=== PATIENT | female | born 1950 | race Caucasian/White ===

== ENCOUNTER → 2019-05-20 13:13 | Outpatient (CLI) | payer MEDICARE, SELFPAY ==
--- NOTE | ~2019-05-20 | DEXA_ITS ---
Bone Density Report Name: Erin Quintana Age: 68 Sex: Female Ethnicity: White Date of : 1950 Indication: postmenopausal osteoporosis; monitoring treatment; height loss; prior fracture; hysterectomy; Referring Provider: HE SMITH Study: Bone densitometry was performed. Exam Date: May 20, 2019 Accession number: [id number] Bone Density: Region BMD T-score Z-score Classification AP Spine (L1-L4) 0.784 -2.4 -0.2 Osteopenia Femoral Neck (Left) 0.508 -3.1 -1.2 Osteoporosis Total Hip (Left) 0.687 -2.1 -0.5 Osteopenia Femoral Neck (Right) 0.538 -2.8 -1.0 Osteoporosis Total Hip (Right) 0.706 -1.9 -0.4 Osteopenia Total Hip Mean 0.696 -2.0 -0.5 Osteopenia World Health Organization criteria for BMD impression classify patients as: Normal (T-score at or above -1.0), Osteopenia (T-score between -1.0 and -2.5), or Osteoporosis (T-score at or below -2.5). 10-year Fracture Risk: FRAX not reported because: Some T-score for Spine Total or Hip Total or Femoral Neck at or below -2.5 Treated for osteoporosis Previous Exams: Region Exam Age BMD T-score BMD Change BMD Change Date g/cm2 vs Baseline vs Previous AP Spine(L1-L4) 05/20/2019 68 0.784 -2.4 0.046* 0.022 02/11/2017 66 0.762 -2.6 0.024* 0.012 03/24/2014 63 0.751 -2.7 0.012 0.012 03/06/2012 61 0.738 -2.8 Total Hip(Left) 05/20/2019 68 0.687 -2.1 -0.023 -0.009 02/11/2017 66 0.696 -2.0 -0.014 -0.020 03/24/2014 63 0.716 -1.9 0.006 0.006 03/06/2012 61 0.710 -1.9 Total Hip(Right) 05/20/2019 68 0.706 -1.9 0.005 0.027 02/11/2017 66 0.679 -2.2 -0.021 -0.020 03/24/2014 63 0.699 -2.0 -0.001 -0.001 03/06/2012 61 0.700 -2.0 *Denotes significance at 95% confidence level, LSC for AP Spine = 0.022 g/cm2, LSC for Total Hip = 0.027 g/cm2 Clinical Information Provided by Patient: Has had a low trauma fracture Is being treated for osteoporosis Has used the following medications: Actonel (i.e. risedronate), Calcium, VIT D INCLUDED IN CALCIUM, MTV Has the following medical conditions: Hysterectomy, BREAST CANCER 1993 Patient maximum height was 64 Menopause Age: 43 Drinks caffeinated beverages Onset of menses at age 11 Number of children 2 Impression: The patient has established osteoporosis, base
--- NOTE | ~2019-05-20 | MM_ITS ---
EXAMINATION: MM screening in[facility] BI w ramonita HISTORY: Screening mammogram TECHNIQUE: Craniocaudal and mediolateral oblique 3-D tomosynthesis images were obtained and synthetic 2-D images were generated. CAD analysis was submitted and interpreted. COMPARISON: 03/19/2018 bilateral digital screening mammogram 02/19/2017 bilateral diagnostic digital mammogram , 05/18/2015 bilateral digital screening mammogram examinations BREAST PARENCHYMAL COMPOSITION: The breasts are heterogeneously dense, which may obscure small masses . FINDINGS: There is postoperative change of the left breast from partial mastectomy including volume l oss compared to the right. Occasional bilateral benign calcifications. There is no evidence of suspic ious mass, calcification, or architectural distortion to suggest malignancy in either breast. There h as been no suspicious interval change. IMPRESSION: 1. No mammographic evidence of malignancy. 2. Recommend routine screening mammography in one year. BI-RADS Category 2: Benign finding(s). Reviewed, dictated and finalized at location A. INE PRINTER
== END ==
PROVIDERS: PCP Nurse Practitioner; Visit Provider Nurse Practitioner
DX: Z12.31 Encounter for screening mammogram for malignant neoplasm of breast (principal); M81.0 Age-related osteoporosis without current pathological fracture
CPT/HCPCS: 77063; 77067; 77080

== ENCOUNTER → 2020-11-26 13:42 | Outpatient (CLI) | payer MEDICARE, SELFPAY ==
--- NOTE | ~2020-11-26 | MM_ITS ---
EXAMINATION: MM screening inez BI w ramonita HISTORY: Screening TECHNIQUE: Craniocaudal and mediolateral oblique 3-D tomosynthesis images were obtained and synthetic 2-D images were generated. CAD analysis was submitted and interpreted. COMPARISON: No prior mammogram is available for comparison at this institution. BREAST PARENCHYMAL COMPOSITION: The breasts are heterogeneously dense, which may obscure small masses . FINDINGS: There is no evidence of suspicious mass, calcification, or architectural distortion to sugg est malignancy in either breast. There has been no suspicious interval change. IMPRESSION: 1. No mammographic evidence of malignancy. 2. Recommend routine screening mammography in one year. BI-RADS Category 1: Negative Reviewed, dictated and finalized at location A.
== END ==
PROVIDERS: PCP Internal Medicine; Visit Provider Internal Medicine
DX: Z12.31 Encounter for screening mammogram for malignant neoplasm of breast (principal)
CPT/HCPCS: 77063; 77067

== ENCOUNTER → 2021-07-16 10:58 | Outpatient (CLI) | payer MEDICARE, SELFPAY ==
--- NOTE | ~2021-07-16 | DEXA_ITS ---
Bone Density Report Name: LAXMI PRIETO Age: 71 Sex: Female Ethnicity: White Date of : 1950 Indication: osteopenia; monitoring treatment; height loss; prior fracture; hysterectomy; postmenopausal Referring Provider: Blanca Garcia Study: Bone densitometry was performed. Exam Date: July 16, 2021 Accession number: [id number] Bone Density: Region BMD T-score Z-score Classification AP Spine (L1-L4) 0.818 -2.1 0.2 Osteopenia Femoral Neck (Left) 0.512 -3.0 -1.1 Osteoporosis Total Hip (Left) 0.702 -2.0 -0.3 Osteopenia Femoral Neck (Right) 0.538 -2.8 -0.8 Osteoporosis Total Hip (Right) 0.684 -2.1 -0.4 Osteopenia Total Hip Mean 0.693 -2.1 -0.4 Osteopenia World Health Organization criteria for BMD impression classify patients as: Normal (T-score at or above -1.0), Osteopenia (T-score between -1.0 and -2.5), or Osteoporosis (T-score at or below -2.5). 10-year Fracture Risk: FRAX not reported because: Some T-score for Spine Total or Hip Total or Femoral Neck at or below -2.5 Treated for osteoporosis Previous Exams: Region Exam Age BMD T-score BMD Change BMD Change Date g/cm2 vs Baseline vs Previous AP Spine(L1-L4) 07/16/2021 71 0.818 -2.1 0.079* 0.033* 05/20/2019 68 0.784 -2.4 0.046* 0.022 02/11/2017 66 0.762 -2.6 0.024* 0.012 03/24/2014 63 0.751 -2.7 0.012 0.012 03/06/2012 61 0.738 -2.8 Total Hip(Left) 07/16/2021 71 0.702 -2.0 -0.008 0.015 05/20/2019 68 0.687 -2.1 -0.023 -0.009 02/11/2017 66 0.696 -2.0 -0.014 -0.020 03/24/2014 63 0.716 -1.9 0.006 0.006 03/06/2012 61 0.710 -1.9 Total Hip(Right) 07/16/2021 71 0.684 -2.1 -0.017 -0.022 05/20/2019 68 0.706 -1.9 0.005 0.027 02/11/2017 66 0.679 -2.2 -0.021 -0.020 03/24/2014 63 0.699 -2.0 -0.001 -0.001 03/06/2012 61 0.700 -2.0 *Denotes significance at 95% confidence level, LSC for AP Spine = 0.022 g/cm2, LSC for Total Hip = 0.027 g/cm2 Clinical Information Provided by Patient: Has had a low trauma fracture Is being treated for osteoporosis Has used the following medications: Actonel (i.e. risedronate), Calcium, VIT D INCLUDED IN CALCIUM, MTV, LEVOTHYROXINE Has the following medical conditions: Hysterectomy, BREAST CANCER 1993 WITH CHEMO AND RADIATION Patient maximum height was 64
== END ==
PROVIDERS: Visit Provider Nurse Practitioner
DX: M81.0 Age-related osteoporosis without current pathological fracture (principal); M85.89 Other specified disorders of bone density and structure, multiple sites
CPT/HCPCS: 77080

== ENCOUNTER 2022-03-20 08:53 | Outpatient (CLI) | payer MEDICARE, SELFPAY ==
[2022-03-20 18:55] LABS: Basophils Absolute Auto 0.1 K/mm3 (0.0-0.1); Basophils Percent Auto 1.2 % (0.2-1.2); Eosinophils Absolute Auto 0.1 K/mm3 (0-0.3); Eosinophils Percent Auto 2.8 % (0-4.4); Hematocrit 46.2 % (37.0-47.0); Immature Granulocyte Absolute 0.01 K/mm3 (0.00-0.031); Immature Granulocyte Percent A 0.2 % (0-0.5); Lymphocytes Absolute Auto 1.42 K/mm3 (0.9-3.2); Lymphocytes Percent Auto 32.9 % (18.3-44.2); Mean Corpuscular HGB Conc 32.5 g/dl (32-36); Mean Corpuscular Hemoglobin 30.9 pg (26-34); Mean Corpuscular Volume 95.3 fl (80-100); Mean Platelet Volume 9.7 fl (7.4-10.4); Monocytes Absolute Auto 0.4 K/mm3 (0.1-0.6); Monocytes Percent Auto 8.6 % (2.6-8.5); Neutrophils Absolute Auto 2.4 K/mm3 (1.3-6.7); Neutrophils Percent Auto 54.3 % (45.5-73.1); Platelet Count Result 259 k/mm3 (150-375); Red Blood Count 4.85 M/mm3 (4.2-5.4); Red Cell Distribution Width 13.2 % (11.5-14.5); White Blood Count 4.3 K/mm3 (4.5-10.0)
[2022-03-20 19:27] LABS: Alanine Aminotransferase 23 U/L (6-35); Albumin Level 4.7 g/dL (3.5-5.1); Alkaline Phosphatase 62 U/L (38-126); Anion Gap 10 mmol/L (8-16); Aspartate Amino Transferase 29 U/L (14-36); Bilirubin,Total 0.3 mg/dL (0.2-1.3); Blood Urea Nitrogen 16 mg/dL (7-17); Calcium 9.3 mg/dL (8.4-10.2); Carbon Dioxide 27 mmol/L (22-30); Chloride 102 mmol/L (98-107); Cholesterol 220 mg/dL (0-200); Estimated Glomerular Filt Rate > 60; Glucose 100 mg/dL (65-110); HDL Direct 47 mg/dL; Potassium 4.2 mmol/L (3.4-5.0); Sodium 139 mmol/L (137-145); Triglycerides 152 mg/dL (<150)
[2022-03-20 19:31] LABS: Vitamin D 25 Hydroxy 30.7 ng/mL
[2022-03-20 19:38] LABS: LDL Cholesterol Direct 126 mg/dL
== END 2022-03-20 08:54 | disposition home or self-care (01) ==
LOC: ANHGOSHLAB 08:56
PROVIDERS: PCP Internal Medicine; Visit Provider Nurse Practitioner
DX: E03.9 Hypothyroidism, unspecified (principal); E55.9 Vitamin D deficiency, unspecified; Z13.29 Encounter for screening for other suspected endocrine disorder; E78.5 Hyperlipidemia, unspecified
CPT/HCPCS: 36415; 80053; 80061; 82306; 84443; 85025

== ENCOUNTER 2022-03-24 12:21 | Outpatient (CLI) | payer MEDICARE, SELFPAY ==
--- NOTE | 2022-03-24 12:33 | ECHO_ITS ---
Patient Info Name: Erin Quintana Age: 71 years : 1950 Gender: Female Ht: 62 in Wt: 146 lbs BSA: 1.72 m2 HR: 71 bpm BP: 156 / 92 mmHg Technical Quality: Fair Exam Date: 03/24/2022 12:59 PM Exam Location: [facility] Patient Status: Outpatient Admit Date: 03/24/2022 Staff Ordering Physician: Blanca Garcia NP Diabetes Manager: Jeny Yu RDCS Attending Provider: Blanca Garcia NP Referring Physician: Radha MORENO; Exam Type: CA echo doppler color flow Study Info Indications R01.1 - Cardiac murmur, unspecified Complete two-dimensional, color flow and Doppler transthoracic echocardiogram is performed. Summary 1. Complete two-dimensional, color flow and Doppler transthoracic echocardiogram is performed. 2. Left ventricular chamber dimension is normal. 3. Left ventricular systolic function is normal, estimated at 65-70%. 4. There is mildly increased left ventricular wall thickness. 5. The left ventricular diastolic function is grade I diastolic dysfunction. 6. E/e' 10 is mildly elevated. 7. Global longitudinal strain is normal at -17.3%. 8. Left atrial chamber dimension is mildly enlarged. 9. There is moderate aortic valve sclerosis. 10. There is mild aortic valve stenosis with a peak velocity of 328 cm/s, mean gradient of 23 mmHg, and aortic valve area of 1.9 cm2. 11. No pulmonary hypertension, estimated pulmonary arterial systolic pressure is 34 mmHg. Left Ventricle E/e' 10 is mildly elevated. Global longitudinal strain is normal at -17.3%. Left ventricular chamber dimension is normal. Left ventricular systolic function is normal, estimated at 65-70%. There is mildly increased left ventricular wall thickness. The left ventricular diastolic function is grade I diastolic dysfunction. Right Ventricle Right ventricular systolic function is normal and with normal TAPSE 1.7 cm. Right ventricular chamber dimension is normal. Left Atria Left atrial chamber dimension is mildly enlarged. Right Atria Right atrial chamber dimension is normal. Aortic Valve The aortic valve is probable trileaflet. There is moderate aortic valve sclerosis. There is mild aortic valve stenosis with a peak velocity of 328 cm/s, mean gradient of 23 mmHg, and aortic valve area of 1.9 cm2. There is no aortic valve regurgitation. Pulmonic Valve There is no pulmonic regurgitation. Mitral Valve There is no mitral valve stenosis. There is no mitral valve regurgitation. Tricuspid Valve There is no tricuspid valve regurgitation. No pulmonary hypertension, estimated pulmonary arterial systolic pressure is 34 mmHg. Pericardium/Pleural There is no pericardial effusion. Inferior Vena Cava Normal inferior vena cava with >50% collapse upon inspiration consistent with normal right atrial pressure, 5 mmHg. Aorta The aortic root size at the sinus of Valsalva is normal. Left Ventricular Outflow Tract Name Value Normal LVOT 2D LVOT Diameter 2.0 cm LVOT Doppler LVOT Peak Gradient 20 mmHg LVOT Mean Gradient 10 mmHg LVOT VTI 43
== END 2022-03-24 12:22 | disposition home or self-care (01) ==
LOC: ANHCARD 12:25
PROVIDERS: PCP Internal Medicine; Visit Provider Nurse Practitioner
DX: R01.1 Cardiac murmur, unspecified (principal); I35.8 Other nonrheumatic aortic valve disorders
CPT/HCPCS: 93306

== ENCOUNTER → 2022-06-10 07:10 | Outpatient (CLI) | payer MEDICARE, SELFPAY ==
--- NOTE | ~2022-06-10 | MM_ITS ---
EXAMINATION: MM screening inez BI w ramonita HISTORY: Screening mammogram TECHNIQUE: Craniocaudal and mediolateral oblique 3-D tomosynthesis images were obtained and synthetic 2-D images were generated. CAD analysis was submitted and interpreted. COMPARISON: 11/26/2020, 05/20/2019, 03/19/2018 bilateral screening mammogram examinations BREAST PARENCHYMAL COMPOSITION: The breasts are heterogeneously dense, which may obscure small masses . FINDINGS: There is diminished size of the left breast consistent with prior left partial mastectomy f or breast malignancy. Scattered bilateral benign calcifications. There are some indeterminate microcalcifications in the upper left breast on MLO view. Diagnostic lef t mammogram with magnification views is recommended. Otherwise there is no evidence of suspicious mass, calcification, or architectural distortion to sugg est malignancy in either breast. There has been no other suspicious interval change. IMPRESSION: 1. Status post left partial mastectomy for breast cancer. 2. Indeterminate microcalcifications, upper left breast on MLO view; diagnostic left mammogram with m agnification views is recommended. BI-RADS Category 0: Incomplete: Needs additional imaging evaluation. Reviewed, dictated and finalized at location A. FASTENER IMPRESSION: 1. Status post left partial mastectomy for breast cancer. 2. Indeterminate microcalcifications, upper left breast on MLO view; diagnostic left mammogram with magnification views is recommended. BI-RADS Category 0: Incomplete: Needs additional imaging evaluation.
== END ==
PROVIDERS: PCP Internal Medicine; Visit Provider Nurse Practitioner
DX: Z12.31 Encounter for screening mammogram for malignant neoplasm of breast (principal); Z85.3 Personal history of malignant neoplasm of breast; Z90.12 Acquired absence of left breast and nipple; R92.0 Mammographic microcalcification found on diagnostic imaging of breast
CPT/HCPCS: 77063; 77067

== ENCOUNTER 2022-06-30 07:49 | Outpatient (CLI) | payer MEDICARE, SELFPAY ==
--- NOTE | ~2022-06-30 | MMUS_ITS ---
EXAMINATION: MM diagnostic mammo unilat LT, US breast LT complete HISTORY: Indeterminate microcalcifications in upper left breast on June 10, 2022 screening mammog lorie TECHNIQUE: ML view.. ML, MLO and CC magnification views. CAD analysis was submitted and interpreted. High resolution complete left breast ultrasound examination including all 4 quadrants and subareolar area was performed. COMPARISON: None FINDINGS: MAMMOGRAPHIC FINDINGS: There is heterogeneous dense stroma which may obscure masses. And scattered benign circular microcalc ifications and occasional linear secretory calcifications are noted. No suspicious reproducible calci fications are noted. Arterial calcification is noted. ULTRASOUND: No suspicious mass or shadowing or other significant sonographic abnormality is noted. IMPRESSION: 1. Benign finding 2. Routine annual mammographic screening is recommended BI-RADS Category 2: Benign finding(s). Reviewed, dictated and finalized at location A. IMPRESSION: 1. Benign finding 2. Routine annual mammographic screening is recommended BI-RADS Category 2: Benign finding(s).
== END 2022-06-30 07:50 ==
LOC: MICIMG 07:50
PROVIDERS: PCP Internal Medicine; Visit Provider Nurse Practitioner
DX: N64.89 Other specified disorders of breast (principal)
CPT/HCPCS: 76641; 77065

== ENCOUNTER 2023-04-07 12:19 | Outpatient (CLI) | payer MEDICARE, SELFPAY ==
--- NOTE | 2023-04-07 12:38 | ECHO_ITS ---
Patient Info Name: Erin Quintana Age: 72 years : 1950 Gender: Female Ht: 63 in Wt: 148 lbs BSA: 1.74 m2 HR: 65 bpm BP: 141 / 85 mmHg Heart Rhythm: Sinus Rhythm Technical Quality: Good Exam Date: 04/07/2023 12:43 PM Exam Location: [facility] Patient Status: Outpatient Admit Date: 04/07/2023 Staff Ordering Physician: Kimo Khan DO Urologic Surgeon: Francisco Vallejo RDCS Attending Provider: Kimo Khan DO Referring Physician: Bill AMANDA; Exam Type: CA echo doppler color flow Study Info Indications - nonrhumatic valve stenosis Complete two-dimensional, color flow and Doppler transthoracic echocardiogram is performed. Summary 1. Complete two-dimensional, color flow and Doppler transthoracic echocardiogram is performed. 2. Left ventricular chamber dimension is normal. 3. Left ventricular systolic function is normal, estimated at 65-70%. 4. There is mild concentric increased left ventricular wall thickness. 5. The left ventricular diastolic function is grade I diastolic dysfunction. 6. E/e' 10 is mildly elevated. 7. Left atrial chamber dimension is mildly enlarged. 8. There is moderate aortic valve sclerosis. 9. There is moderate mitral valve regurgitation. 10. There is mild tricuspid valve regurgitation. 11. No pulmonary hypertension, estimated pulmonary arterial systolic pressure is 25 mmHg. Left Ventricle E/e' 10 is mildly elevated. Left ventricular chamber dimension is normal. Left ventricular systolic function is normal, estimated at 65-70%. There is mild concentric increased left ventricular wall thickness. The left ventricular diastolic function is grade I diastolic dysfunction. Right Ventricle Right ventricular chamber dimension is normal. Right ventricular systolic function is normal. Left Atria Left atrial chamber dimension is mildly enlarged. Right Atria Right atrial chamber dimension is normal. Aortic Valve The aortic valve is trileaflet. There is moderate aortic valve sclerosis. There is no aortic valve stenosis. There is no aortic valve regurgitation. Pulmonic Valve There is no pulmonic regurgitation. Mitral Valve There is no mitral valve stenosis. There is moderate mitral valve regurgitation. Tricuspid Valve There is mild tricuspid valve regurgitation. No pulmonary hypertension, estimated pulmonary arterial systolic pressure is 25 mmHg. Pericardium/Pleural There is no pericardial effusion. Inferior Vena Cava Normal inferior vena cava with >50% collapse upon inspiration consistent with normal right atrial pressure, 5 mmHg. Aorta The aortic root size at the sinus of Valsalva is normal. Left Ventricular Outflow Tract Name Value Normal LVOT 2D LVOT Diameter 2.1 cm LVOT Doppler LVOT Peak Gradient 19 mmHg LVOT Mean Gradient 9 mmHg LVOT VTI 49 cm LVOT VTI/AV VTI Ratio 0.8 LVOT Stroke Volume 171 ml LVOT CO 11.7 l/min LVOT CI 6.7 l/min/m2 Pulmonic Valve Name
== END 2023-04-07 12:20 | disposition home or self-care (01) ==
LOC: ANHCARD 12:20
PROVIDERS: PCP Internal Medicine; Visit Provider Internal Medicine Cardiovascular Disease
DX: I08.3 Combined rheumatic disorders of mitral, aortic and tricuspid valves (principal)
CPT/HCPCS: 93306

== ENCOUNTER 2023-04-10 08:28 | Outpatient (CLI) | payer MEDICARE, SELFPAY ==
[2023-04-10 15:02] LABS: Basophils Percent Auto 0.9 % (0.2-1.2); Eosinophils Absolute Auto 0.1 K/mm3 (0-0.3); Eosinophils Percent Auto 2.1 % (0-4.4); Hematocrit 43.2 % (37.0-47.0); Immature Granulocyte Absolute 0.01 K/mm3 (0.00-0.031); Immature Granulocyte Percent A 0.2 % (0-0.5); Lymphocytes Absolute Auto 1.25 K/mm3 (0.9-3.2); Lymphocytes Percent Auto 29.6 % (18.3-44.2); Mean Corpuscular HGB Conc 32.4 g/dl (32-36); Mean Corpuscular Hemoglobin 30.6 pg (26-34); Mean Corpuscular Volume 94.5 fl (80-100); Mean Platelet Volume 9.5 fl (7.4-10.4); Monocytes Absolute Auto 0.4 K/mm3 (0.1-0.6); Neutrophils Absolute Auto 2.4 K/mm3 (1.3-6.7); Neutrophils Percent Auto 57.2 % (45.5-73.1); Platelet Count Result 251 k/mm3 (150-375); Red Blood Count 4.57 M/mm3 (4.2-5.4); Red Cell Distribution Width 13.2 % (11.5-14.5); White Blood Count 4.2 K/mm3 (4.5-10.0)
[2023-04-10 18:09] LABS: Alanine Aminotransferase 21 U/L (6-35); Albumin Level 4.3 g/dL (3.5-5.1); Alkaline Phosphatase 60 U/L (38-126); Anion Gap 8 mmol/L (8-16); Aspartate Amino Transferase 38 U/L (14-36); Bilirubin,Total 0.7 mg/dL (0.2-1.3); Blood Urea Nitrogen 14 mg/dL (7-17); Calcium 9.1 mg/dL (8.4-10.2); Carbon Dioxide 29 mmol/L (22-30); Chloride 100 mmol/L (98-107); Cholesterol 177 mg/dL (0-200); Estimated Glomerular Filt Rate > 60; Glucose 75 mg/dL (65-110); HDL Direct 45 mg/dL; Potassium 4.2 mmol/L (3.4-5.0); Sodium 137 mmol/L (137-145); Triglycerides 148 mg/dL (<150)
[2023-04-10 18:20] LABS: LDL Cholesterol Direct 101 mg/dL
[2023-04-10 19:43] LABS: Vitamin D 25 Hydroxy 38.2 ng/mL
== END 2023-04-10 08:29 | disposition home or self-care (01) ==
PROVIDERS: PCP Internal Medicine; Visit Provider Nurse Practitioner
DX: Z13.29 Encounter for screening for other suspected endocrine disorder (principal); E78.5 Hyperlipidemia, unspecified; E03.9 Hypothyroidism, unspecified; E55.9 Vitamin D deficiency, unspecified
CPT/HCPCS: 36415; 80053; 80061; 82306; 84443; 85025

== ENCOUNTER 2023-07-01 07:31 | Outpatient (NON) | payer MEDICARE, SELFPAY | END 2023-07-01 07:32 | disposition home or self-care (01) | LOC: ANHLAB 07-02 07:35 | PROVIDERS: PCP Internal Medicine; Visit Provider Internal Medicine Gastroenterology | DX: R19.5 Other fecal abnormalities (principal); K62.1 Rectal polyp | CPT/HCPCS: 88305 ==

== ENCOUNTER 2023-07-01 09:03 | Day surgery (SDC) | payer MEDICARE, SELFPAY ==
[2023-06-16 09:34] VITALS: BMI 27.1
[2023-07-01 10:07] VITALS: BP 139/88; PULSE 86; RESP 16; TEMP 36.6; O2SAT 96
[2023-07-01] MEDS: LACTATED RINGERS 1,000 ML 150 ML IV CONT (10:09)
--- NOTE | 2023-07-01 10:20 | PM.HPGS ---
History of Present Illness History of Present Illness Consent: Risks, benefits, and alternatives have been discussed and questions answered. Patient agrees to proceed with procedure. Chief complaint: Positive Cologuard Narrative: Erin Quintana is a 73 year old female presents for screening colonoscopy. Consider bowel habits are normal. She denies abdominal pain. Patient has had no bleeding. Family history noncontributory.. Previous colonoscopy 10 years ago was unremarkable. Patient presents today for screening colonoscopy because of positive Cologuard test. Review of Systems Review of Systems: Review of systems noncontributory. [facility] Past Medical History Medical History Aortic valve stenosis Basal cell carcinoma (BCC) H/O fracture H/O malignant neoplasm of breast 1984 Hyperlipidemia Hypothyroidism Osteoporosis Uterine prolapse Surgical History Surgical History H/O lumpectomy Breast; 1993 Family History Family History Father Hypertension Mother Hypertension Asthma Social History Social History Smoking status: Never smoker Alcohol intake: current Alcohol use details: Pt drinks occasionally. Substance use: never Substance use type: does not use Do You Feel Safe in your Home?: Yes Lack of Transportation: No Lack of Food: Never True Current Housing: I Have Housing Concerned About Future Housing: No Difficulty Paying Gas/Electric Bills: No Difficulty Paying for Meds: No Currently Unemployed: No Education: Bachelor's Degree Difficulty w/ Childcare or Family Care: No Meds Home Medications and Allergies Home Medications Medication Instructions Recorded Confirmed Type multivitamin 1 tablet PO DAILY 03/11/19 07/01/23 History levothyroxine 50 mcg tablet 50 mcg PO DAILY #90 tabs 03/23/23 07/01/23 Rx (Synthroid) ascorbic acid (vitamin C) 1 tablet PO DAILY 04/17/23 07/01/23 History risedronate 150 mg tablet (Actonel) 150 mg PO MONTHLY #4 tabs 04/17/23 07/01/23 Rx simvastatin 10 mg tablet 10 mg PO DAILY #90 tabs 04/17/23 07/01/23 Rx calcium carb-vit D3-minerals 600 2 tablet PO DAILY 05/01/23 07/01/23 History mg calcium-400 unit tablet cholecalciferol (vitamin D3) 25 50 mcg PO DAILY 05/01/23 07/01/23 History mcg (1,000 unit) capsule vitamin E (dl, acetate) 450 mg 400 mg PO DAILY 05/01/23 07/01/23 History (1,000 unit) capsule Allergies Allergy/AdvReac Type Severity Reaction Status Date / Time erythromycin base AdvReac Unknown Vomiting Verified 07/01/23 10:04 Vital Signs Vital Signs - 24 hr 07/01/23 10:07 Temperature 97.9 F Pulse Rate 86 Respiratory Rate 16 Blood Pressure 139/88 Pulse Oximetry 96 Oxygen Delivery Room Air Exam Narrative: Physical exam reveals patient signs stable. HEENT exam is unremarkable. Patient is anicteric. Lungs are clear to auscultation and percussion. Heart exam is without murmur or extra sounds. Abdomen bowel sounds are present soft nontender with no hepatosplenomegaly. Digital external rectal exam is normal. Assessment and Plan Assessment and plan (1) Positive colorectal cancer screening using Cologuard test: Code(s): R19.5 - Other fecal abnormalities Status: Acute Assessment and Plan: Cologuard test recently was positive. Plan for screening colonoscopy.
--- NOTE | 2023-07-01 11:08 | WPDANESEPPF ---
Anes - Initial Pre Proc Eval Procedure: Operation Date: 07/01/23 11:30 Proposed Procedures p Diagnositc Colonoscopy - Travis Carlson MD Date/Time: 07/01/23 11:08 Surgeon: Travis Carlson MD Pre Op Diagnosis: Positive Cologuard Patient Data Age: 73 Gender: F Height: 1.57 m Weight: 66.7 kg Last Vital Signs Temp 36.6 C 07/01/23 10:07 Pulse 86 07/01/23 10:07 Resp 16 07/01/23 10:07 BP 139/88 07/01/23 10:07 Pulse Ox 96 07/01/23 10:07 O2 Del Method Room Air 07/01/23 10:07 Allergies Allergy/AdvReac Type Severity Reaction Status Date / Time erythromycin base AdvReac Unknown Vomiting Verified 07/01/23 10:04 Home Medications Medication Instructions Recorded Confirmed Type multivitamin 1 tablet PO DAILY 03/11/19 07/01/23 History levothyroxine 50 mcg tablet 50 mcg PO DAILY #90 tabs 03/23/23 07/01/23 Rx (Synthroid) ascorbic acid (vitamin C) 1 tablet PO DAILY 04/17/23 07/01/23 History risedronate 150 mg tablet (Actonel) 150 mg PO MONTHLY #4 tabs 04/17/23 07/01/23 Rx simvastatin 10 mg tablet 10 mg PO DAILY #90 tabs 04/17/23 07/01/23 Rx calcium carb-vit D3-minerals 600 2 tablet PO DAILY 05/01/23 07/01/23 History mg calcium-400 unit tablet cholecalciferol (vitamin D3) 25 50 mcg PO DAILY 05/01/23 07/01/23 History mcg (1,000 unit) capsule vitamin E (dl, acetate) 450 mg 400 mg PO DAILY 05/01/23 07/01/23 History (1,000 unit) capsule Patient hx anesthesia problems: none Family hx anesthesia problems: none Results Review: All pre-operative results and documents have been reviewed as part of the pre-operative evaluation. [facility] Past Medical History Medical History Aortic valve stenosis Basal cell carcinoma (BCC) H/O fracture H/O malignant neoplasm of breast 1984 Hyperlipidemia Hypothyroidism Osteoporosis Uterine prolapse Surgical History Surgical History H/O lumpectomy Breast; 1994 Family History Family History Father Hypertension Mother Hypertension Asthma Social History Social History Smoking status: Never smoker Alcohol intake: current Alcohol use details: Pt drinks occasionally. Substance use: never Substance use type: does not use Do You Feel Safe in your Home?: Yes Lack of Transportation: No Lack of Food: Never True Current Housing: I Have Housing Concerned About Future Housing: No Difficulty Paying Gas/Electric Bills: No Difficulty Paying for Meds: No Currently Unemployed: No Education: Bachelor's Degree Difficulty w/ Childcare or Family Care: No Anes - Eval Final PreProcedure Day of Procedure 07/01/23 11:08 Patient weight: overweight Heart: regular rate and rhythm Lungs: clear to auscultation Airway: Mallampati scale class II Neurological: alert and oriented Last oral intake: >/= 8 hours ASA classification: III Emergent: no Anesthetic plan: proceed Anesthesia type and monitoring: general and standard monitoring Results Review: All pre-operative results and documents have been reviewed as part of the pre-operative evaluation. Informed Consent: The patient's anesthetic plan and its attendant risks and benefits were discussed with the patient/family/POA. Questions were solicited and answers provided to the satisfaction of the patient/family/POA.
[2023-07-01 11:42] VITALS: BP 111/72; PULSE 72; RESP 16; O2SAT 98
--- NOTE | 2023-07-01 11:50 | WPDANESPN ---
Anes - Prog Note Post-Op Date/Time: 07/01/23 11:50 Cardiovascular status: normal Respiratory status: normal Airway patency: baseline Mental status: baseline Post-Op hydration status: normal Vital Signs: Last Vital Signs Temp 36.6 C 07/01/23 10:07 Pulse 72 07/01/23 11:42 Resp 16 07/01/23 11:42 BP 111/72 07/01/23 11:42 Pulse Ox 98 07/01/23 11:42 O2 Del Method Room Air 07/01/23 11:42 Pain Score (VAS): 0 I/O: Intake & Output 06/30/23 07/01/23 07/01/23 23:59 07:59 15:59 Intake Total 500 Balance 500 Patient Feedback: Patient satisfied with anesthetic care.
[2023-07-01 11:52] VITALS: BP 121/79; PULSE 68; RESP 20; O2SAT 99
[2023-07-01 12:02] VITALS: BP 124/75; PULSE 70; RESP 18; O2SAT 99
== END 2023-07-01 12:09 | disposition home or self-care (01) ==
PROVIDERS: PCP Internal Medicine; Visit Provider Internal Medicine Gastroenterology
PROC: 0DJD8ZZ Inspection of Lower Intestinal Tract, Via Natural or Artificial Opening Endoscopic (ICD-10-PCS; CPT 45378; principal; 2023-07-01 11:30)
DX: R19.5 Other fecal abnormalities (principal); D12.8 Benign neoplasm of rectum; K64.8 Other hemorrhoids
CPT/HCPCS: 45380

== ENCOUNTER 2023-09-28 07:08 | Outpatient (CLI) | payer MEDICARE, SELFPAY ==
--- NOTE | ~2023-09-28 | MM_ITS ---
EXAMINATION: MM screening inez BI w ramonita HISTORY: Screening TECHNIQUE: Craniocaudal and mediolateral oblique 3-D tomosynthesis images were obtained and synthetic 2-D images were generated. CAD analysis was submitted and interpreted. COMPARISON: Comparison to multiple prior studies sequentially, with oldest reviewed study dated 05/2016. BREAST PARENCHYMAL COMPOSITION: Dense: The breasts are heterogeneously dense, which may obscure small masses FINDINGS: There are developing scattered asymmetries in both breasts which are obscured by dense fibr oglandular tissue. IMPRESSION: 1. Developing bilateral breast asymmetries. 2. Additional mammographic views and possible breast ultrasound are recommended. BI-RADS Category 0: Incomplete: Needs additional imaging evaluation. Reviewed, dictated and finalized at location B. IMPRESSION: 1. Developing bilateral breast asymmetries. 2. Additional mammographic views and possible breast ultrasound are recommended . BI-RADS Category 0: Incomplete: Needs additional imaging evaluation.
--- NOTE | ~2023-09-28 | DEXA_ITS ---
Bone Density Report Name: LAXMI PRIETO Age: 73 Sex: Female Ethnicity: White Date of : 1950 Indication: osteopenia; monitoring treatment; height loss; prior fracture; hysterectomy; Referring Provider: Blanca Garcia Study: Bone densitometry was performed. Exam Date: September 28, 2023 Accession number: [id number] Bone Density: Region BMD T-score Z-score Classification AP Spine (L1-L4) 0.850 -1.8 0.6 Osteopenia Femoral Neck (Left) 0.501 -3.1 -1.0 Osteoporosis Total Hip (Left) 0.698 -2.0 -0.2 Osteopenia Femoral Neck (Right) 0.539 -2.8 -0.7 Osteoporosis Total Hip (Right) 0.719 -1.8 0.0 Osteopenia Total Hip Mean 0.709 -1.9 -0.1 Osteopenia World Health Organization criteria for BMD impression classify patients as: Normal (T-score at or above -1.0), Osteopenia (T-score between -1.0 and -2.5), or Osteoporosis (T-score at or below -2.5). 10-year Fracture Risk: FRAX not reported because: Some T-score for Spine Total or Hip Total or Femoral Neck at or below -2.5 Treated for osteoporosis Previous Exams: Region Exam Age BMD T-score BMD Change BMD Change Date g/cm2 vs Baseline vs Previous AP Spine(L1-L4) 09/28/2023 73 0.850 -1.8 0.112* 0.033* 07/16/2021 71 0.818 -2.1 0.079* 0.033* 05/20/2019 68 0.784 -2.4 0.046* 0.022 02/11/2017 66 0.762 -2.6 0.024* 0.012 03/24/2014 63 0.751 -2.7 0.012 0.012 03/06/2012 61 0.738 -2.8 Total Hip(Left) 09/28/2023 73 0.698 -2.0 -0.012 -0.004 07/16/2021 71 0.702 -2.0 -0.008 0.015 05/20/2019 68 0.687 -2.1 -0.023 -0.009 02/11/2017 66 0.696 -2.0 -0.014 -0.020 03/24/2014 63 0.716 -1.9 0.006 0.006 03/06/2012 61 0.710 -1.9 Total Hip(Right) 09/28/2023 73 0.719 -1.8 0.018 0.035* 07/16/2021 71 0.684 -2.1 -0.017 -0.022 05/20/2019 68 0.706 -1.9 0.005 0.027 02/11/2017 66 0.679 -2.2 -0.021 -0.020 03/24/2014 63 0.699 -2.0 -0.001 -0.001 03/06/2012 61 0.700 -2.0 *Denotes significance at 95% confidence level, LSC for AP Spine = 0.022 g/cm2, LSC for Total Hip = 0.027 g/cm2 Clinical Information Provided by Patient: Has had a low trauma fracture Is being treated for osteoporosis Has used the following medications: Actonel (i.e. risedronate), Vitamin D, Calcium, MTV, LEVOTHYROXINE Has the following medical conditions: Hysterect
== END 2023-09-28 07:09 ==
PROVIDERS: PCP Nurse Practitioner; Visit Provider Nurse Practitioner
DX: Z12.31 Encounter for screening mammogram for malignant neoplasm of breast (principal); Z78.0 Asymptomatic menopausal state; M85.88 Other specified disorders of bone density and structure, other site; M81.0 Age-related osteoporosis without current pathological fracture; M85.852 Other specified disorders of bone density and structure, left thigh; M85.851 Other specified disorders of bone density and structure, right thigh
CPT/HCPCS: 77063; 77067; 77080

== ENCOUNTER 2023-10-21 08:42 | Outpatient (CLI) | payer MEDICARE, SELFPAY ==
--- NOTE | ~2023-10-21 | MM_ITS ---
EXAMINATION: MM diagnostic [facility] BI w ramonita HISTORY: Bilateral asymmetric densities TECHNIQUE: Additional 3-D tomosynthesis images of the bilateral breasts were performed and synthetic 2-D images were generated. CAD analysis was submitted and interpreted. COMPARISON: 09/28/2023, 06/30/2022, 06/10/2022, 11/26/2020 BREAST PARENCHYMAL COMPOSITION:Dense: The breasts are heterogeneously dense, which may obscure small masses. FINDINGS: The areas of density in the bilateral breasts efface with spot compression. No persistent m ass lesion or suspicious distortion seen. No suspicious microcalcifications. IMPRESSION: No mammographic evidence for malignancy. BI-RADS Category 1: Negative Reviewed, dictated and finalized at location .
== END 2023-10-21 08:43 ==
LOC: MICIMG 08:43
PROVIDERS: PCP Nurse Practitioner; Visit Provider Nurse Practitioner
DX: N64.89 Other specified disorders of breast (principal)
CPT/HCPCS: 77062; 77066; G0279

== ENCOUNTER 2024-04-22 08:20 | Outpatient (CLI) | payer MEDICARE, SELFPAY ==
[2024-04-22 14:35] LABS: Basophils Percent Auto 0.7 % (0.2-1.2); Eosinophils Absolute Auto 0.2 K/mm3 (0-0.3); Eosinophils Percent Auto 4.4 % (0-4.4); Hematocrit 43.4 % (37.0-47.0); Hemoglobin 14.2 g/dL (12.0-15.0); Immature Granulocyte Absolute 0.01 K/mm3 (0.00-0.031); Immature Granulocyte Percent A 0.2 % (0-0.5); Lymphocytes Absolute Auto 1.32 K/mm3 (0.9-3.2); Mean Corpuscular HGB Conc 32.7 g/dl (32-36); Mean Corpuscular Volume 94.8 fl (80-100); Mean Platelet Volume 9.8 fl (7.4-10.4); Monocytes Absolute Auto 0.4 K/mm3 (0.1-0.6); Monocytes Percent Auto 9.5 % (2.6-8.5); Neutrophils Absolute Auto 2.2 K/mm3 (1.3-6.7); Neutrophils Percent Auto 53.2 % (45.5-73.1); Platelet Count Result 216 k/mm3 (150-375); Red Blood Count 4.58 M/mm3 (4.2-5.4); White Blood Count 4.1 K/mm3 (4.5-10.0)
[2024-04-22 14:53] LABS: Free T4 Free Thyroxine 1.49 ng/dL (0.78-2.19); Vitamin D 25 Hydroxy 55.3 ng/mL
[2024-04-22 15:21] LABS: Alanine Aminotransferase 20 U/L (6-35); Albumin Level 4.4 g/dL (3.5-5.1); Alkaline Phosphatase 66 U/L (38-126); Anion Gap 1 mmol/L (4-12); Aspartate Amino Transferase 36 U/L (14-36); Bilirubin,Total 0.7 mg/dL (0.2-1.3); Blood Urea Nitrogen 12 mg/dL (7-17); Calcium 9.1 mg/dL (8.4-10.2); Carbon Dioxide 33 mmol/L (22-30); Chloride 104 mmol/L (98-107); Cholesterol 174 mg/dL (0-200); Estimated Glomerular Filt Rate > 60; Glucose 84 mg/dL (65-110); HDL Direct 36 mg/dL; Potassium 4.2 mmol/L (3.4-5.0); Sodium 138 mmol/L (137-145); Triglycerides 161 mg/dL (<150)
[2024-04-22 15:32] LABS: LDL Cholesterol Direct 98 mg/dL
[2024-04-23 11:32] LABS: Triiodothyronine T3 Free 3.4 pg/mL (2.3-4.2)
== END 2024-04-22 08:21 | disposition home or self-care (01) ==
LOC: ANHGOSHLAB 08:21
PROVIDERS: PCP Internal Medicine; Visit Provider Clinical Nurse Specialist
DX: I35.0 Nonrheumatic aortic (valve) stenosis (principal); E78.5 Hyperlipidemia, unspecified; E03.9 Hypothyroidism, unspecified; M81.0 Age-related osteoporosis without current pathological fracture; E55.9 Vitamin D deficiency, unspecified; Z13.29 Encounter for screening for other suspected endocrine disorder
CPT/HCPCS: 36415; 80053; 80061; 82306; 84439; 84443; 84481; 85025

== ENCOUNTER 2025-02-02 12:40 | Outpatient (CLI) | payer MEDICARE, SELFPAY ==
--- NOTE | ~2025-02-02 | MM_ITS ---
EXAMINATION: MM screening [facility] BI w ramonita HISTORY: Screening TECHNIQUE: Craniocaudal and mediolateral oblique 3-D tomosynthesis images were obtained and synthetic 2-D images were generated. CAD analysis was submitted and interpreted. COMPARISON: 06/10/2022 BREAST PARENCHYMAL COMPOSITION: The breasts are extremely dense, which lowers the sensitivity of mammography. FINDINGS: No suspicious calcifications or masses. Focal asymmetry in the upper- outer quadrant of left breast, posterior depth, with questionable architectural distortion. IMPRESSION: 1. Focal asymmetry in the upper-outer quadrant of left breast, posterior depth, with questionable architectural distortion. The study is incomplete. A diagnostic mammogram and a diagnostic ultrasound are recommended. BI-RADS 0: Incomplete-Need additional imaging evaluation. Reviewed, dictated and finalized at location Q. IMPRESSION: 1. Focal asymmetry in the upper-outer quadrant of left breast, posterior depth, with questionable architectural distortion. The study is incomplete. A diagnos tic mammogram and a diagnostic ultrasound are recommended. BI-RADS 0: Incomplete-Need additional imaging evaluation.
== END 2025-02-02 12:41 | disposition home or self-care (01) ==
LOC: MICIMG 12:41
PROVIDERS: PCP Internal Medicine; Visit Provider Internal Medicine
DX: Z12.31 Encounter for screening mammogram for malignant neoplasm of breast (principal); R92.8 Other abnormal and inconclusive findings on diagnostic imaging of breast
CPT/HCPCS: 77063; 77067

== ENCOUNTER 2025-04-07 08:47 | Outpatient (CLI) | payer MEDICARE, SELFPAY ==
--- NOTE | ~2025-04-07 | MM_ITS ---
EXAMINATION: MM diagnostic [facility] LT w ramonita INDICATION: 74-year old female; BI-RADS 0, callback to evaluate Left breast focal asymmetry. Prior history of left partial mastectomy for breast cancer. COMPARISON: 02/02/2025 through 06/10/2022 TECHNIQUE: Digital breast tomosynthesis True lateral view and spot compression pain CC and MLO views of Left breast were obtained with computer-aided detection to assist in interpretation of the study. FINDINGS: The breasts are extremely dense, which lowers the sensitivity of mammography. The focal asymmetry seen in the upper outer Left breast on the screening mammogram effaces on additional views, compatible with normal overlapping tissue and postsurgical scar. IMPRESSION: Left breast finding represents superimposition of fibroglandular tissue. No further investigation necessary. 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 No fur ther investigation necessary. RECOMMENDATION: Annual screening mammography in 12 months BI-RADS 2, BENIGN
== END 2025-04-07 08:48 | disposition home or self-care (01) ==
LOC: MICIMG 08:49
PROVIDERS: PCP Internal Medicine; Visit Provider Internal Medicine
DX: R92.322 Mammographic fibroglandular density, left breast (principal); R92.8 Other abnormal and inconclusive findings on diagnostic imaging of breast
CPT/HCPCS: 77061; 77065; G0279